=== PATIENT | male | born 1945 ===

== ENCOUNTER 2024-12-02 06:19 | Day surgery (SDC) | payer OTHER, SELFPAY ==
[2024-12-02] VITALS (7 sets, daily range): BP systolic 91–123; BP diastolic 51–73
== END 2024-12-02 12:32 | disposition home or self-care (01) ==
LOC: SDS 06:19
PROVIDERS: ATTENDING PHYSICIAN Otolaryngology
DX: J95.02 Infection of tracheostomy stoma (principal); J95.03 Malfunction of tracheostomy stoma; Z90.02 Acquired absence of larynx; Z92.3 Personal history of irradiation; Z98.890 Other specified postprocedural states; Z87.891 Personal history of nicotine dependence
CPT/HCPCS: 31614; 88304